=== PATIENT | female | born 1995 | race Caucasian/White ===

== ENCOUNTER → 2024-01-04 11:30 | Oncology outpatient (ONC) | payer OTHER, MEDICAID, SELFPAY ==
[2023-12-07] MEDS: IRON SUCROSE 200 MG in SODIUM CHLORIDE 0.9% 100 ML 220 MG IV (11:55)
[2023-12-07] MEDS: SODIUM CHLORIDE 0.9% 1,000 ML 1000 ML IV (12:00)
[2023-12-21 11:39] VITALS: BP 131/75; PULSE 95; RESP 18; TEMP 36.6; O2SAT 98
[2023-12-21] MEDS: IRON SUCROSE 300 MG in SODIUM CHLORIDE 0.9% 250 ML 176.667 MG IV (11:49)
[2023-12-28 11:50] VITALS: BP 123/69; PULSE 95; RESP 18; TEMP 36.9; O2SAT 95
[2023-12-28] MEDS: IRON SUCROSE 300 MG in SODIUM CHLORIDE 0.9% 250 ML 176.667 MG IV (12:05)
[2023-12-28 12:43] LABS: Hematocrit 27.5 % (36-46); Hemoglobin 9.4 g/dL (12.0-16.0); Mean Corpuscular HGB Conc 34.3 % (30-36); Mean Corpuscular Hemoglobin 35.8 PG (26-34); Mean Corpuscular Volume 104.3 fL (80-100); Platelet Count 111 X10^3/uL (150-400); Red Blood Cell Count 2.63 X10^6/uL (4.0-5.2); Red Cell Distribution Width 14.8 % (11.6-14.8); White Blood Cell Count 7.7 X10^3/uL (4.5-11.0)
[2024-01-04 11:45] VITALS: BP 118/67; PULSE 88; RESP 18; TEMP 36.9; O2SAT 98
[2024-01-04] MEDS: IRON SUCROSE 300 MG in SODIUM CHLORIDE 0.9% 250 ML 176.667 MG IV (12:18)
== END ==
PROVIDERS: Referring Provider Nurse Practitioner Obstetrics & Gynecology; Visit Provider Nurse Practitioner Obstetrics & Gynecology
DX: O99.013 Anemia complicating pregnancy, third trimester (principal); D50.9 Iron deficiency anemia, unspecified; Z3A.37 37 weeks gestation of pregnancy
CPT/HCPCS: 36415; 85027; 86900; 86901; 96361; 96365; 96366; J1756

== ENCOUNTER 2024-01-08 13:43 | Observation (INO) | payer OTHER, MEDICAID, SELFPAY ==
--- NOTE | 2024-01-08 13:49 | PM.OBTRLD ---
Visit Information Visit Information Date of evaluation: 01/08/24 Primary OB Provider: Serina Lewis On-call OB Provider: Serina Lewis Reason for Evaluation: Yes rule out labor Comments/Additional reasons for admission: 28YO @ 38wks 1 day by LMP concordant with 9wk US presents for evaluation of labor. Strong contractions began at 11am and have persisted. Currently breasting through contractions every 3-4 minutes. +FM. No vaginal bleeding or leaking of fluid. care with CNMs complicated by anemia for which she has received IV Fe and idiopathic thrombocytopenia Vital Signs Vital Signs: BP 133/83, HR 80, T 97.7F Temporal PFSH Medical History Depression Anxiety Breast mass, right Surgical History History of tonsillectomy Social History marital status: unmarried,living together household members: significant other lives independently: Yes caregiver/support person: No housing: apartment education level: college occupational status: employed current occupational exposures/hazards: No Smoking Status: Former smoker alcohol intake: former substance use type: does not use Review of Systems Review of Systems ROS: Yes All systems reviewed with the patient and are negative except as otherwise documented Exam Vital Signs (past 8 hours): see above Presentation: vertex Evaluation Evaluation Baseline heart rate: 125 Variability: Moderate (11-25) monitor accelerations: Present Monitor Decelerations: Absent Contraction Frequency (minutes): 4 Uterine Contraction Intensity: Moderate Category of Tracing: Reactive Cervical dilation (cm): 2 Cervical effacement (%): 75 station: -3 Diagnosis, Plan/Disposition Final Diagnosis (1) False labor after 37 completed weeks of gestation: Status: Acute Plan/Disposition Plan: Offered walk and return and Dewey declined, preferring to go back home and wait for labor to intensify. Routine labor precautions reviewed. Will await her call. OB Disposition: home
== END 2024-01-08 14:15 | disposition home or self-care (01) ==
PROVIDERS: Admitting Provider Nurse Practitioner Obstetrics & Gynecology; Referring Provider Nurse Practitioner Obstetrics & Gynecology; Visit Provider Nurse Practitioner Obstetrics & Gynecology
DX: O47.1 False labor at or after 37 completed weeks of gestation (principal); Z3A.38 38 weeks gestation of pregnancy
CPT/HCPCS: 59025; G0378; G0379

== ENCOUNTER 2024-01-08 18:17 | Inpatient (IN) | payer OTHER, MEDICAID, SELFPAY ==
--- NOTE | 2024-01-08 18:39 | PM.OBHP.1 ---
OB HPI Date/Time Date of admission: 01/08/24 Date Patient Seen: 01/08/24 Time Patient Seen: 18:30 History of Present Condition Chief complaint: LABOR : 1 Para: 0 Estimated Date of Delivery: 01/21/24 Estimated Gestational Age (weeks): 38w1d Narrative: Clare Brooks is a 28 year old female, @ 38 weeks 1 day by sure LMP concordant with 5 week US presenting for evaluation of labor. Contractions started today @ 1100 and have been 3-4min apart, moderate intensity and was evaluated in triage @ 1300 with CE: 2/75/-3 and in early labor. She opted to return home. Continue to have ctx 2-3min apart now increased in intensity with majority of pain in her lower back. Having to breathe and concentrate through ctx. movement felt. Denies bleeding or leaking of fluids. Interested in a low-intervention vaginal . Supported by Yuniel DE LA CRUZ) at bedside. Has received care w/ CNMs since 9w. notable for: RH(D) Anemia treated with IV iron, idiopathic thrombocytopenia (111 on 12/28/23). Indications Other reason(s) for admission: Evaluation of labor History of Present care: good care, initiated at week # (9w1d), number of visits (10) and pounds weight gain (47) Dating criteria: LMP confirmed by 1st trimester US Ultrasounds: normal mid trimester US Medical complications: immunologic (immune thrombocytopenia) Preadmission Labs Blood type: B (-) negative -: Antibody screen: negative, Cystic fibrosis screen: negative, GBS status: negative, HBsAG: negative, HIV: negative and RPR/VDLR: negative -: Chlamydia screen: not detected and Gonorrhea screen: not detected -: Rubella: immune and Varicella: immune HCT: 27.5 HCAB: negative PAP: Normal Cell-free DNA: negative Urine: normal 1 hr GTT: 85 Narrative: MsAFP negative Prior (ies) History: none Evaluation Evaluation Baseline heart rate: 125 Variability: Moderate (11-25) monitor accelerations: Present Monitor Decelerations: Absent Contraction Frequency (minutes): 2 (-3) Uterine Contraction Intensity: Moderate Status: Category l Dilation (cm): 4 Effacement (%): 85 station: -3 Position of cervix: posterior Consistency: soft PFSH Medical History Depression Anxiety Breast mass, right Surgical History History of tonsillectomy Social History marital status: unmarried,living together household members: significant other lives independently: Yes caregiver/support person: No housing: apartment education level: college occupational status: employed current occupational exposures/hazards: No Smoking Status: Never smoker alcohol intake: former substance use type: does not use Meds Home Medications and Allergies Home Medications Medication Instructions Recorded Confirmed Type ferrous sulfate 325 mg (65 mg 325 mg PO DAILY 01/08/24 01/08/24 History iron) tablet sertraline 50 mg tablet 50 mg PO DAILY 01/08/24 01/08/24 History Allergies Allergy/AdvReac Type Severity Reaction Status Date / Time hydrocodone AdvReac Verified 12/07/23 11:56 Review of Systems Review of Systems ROS: Yes All systems reviewed with the patient and are negative except as otherwise documented OB Exam Vital signs Blood Pressure: 123/76 Pulse Rate: 99 Temperature: 97.3 F Resp Effort & Inspection: normal respiratory effort and able to speak in complete sentences Auscultation: clear to auscultation bilaterally Cardio Rate: regular rate Rhythm: regular rhythm Presentation: vertex Objective Labs 01/08/24 19:20 Assessment and Plan Assessment and Plan Assessment and Plan narrative: A: Term nullipara Active labor Rh negative Idiopathic thrombocytopenia of Anemia FHR Cat 1 P: Admit for active labor with routine labs/orders w/ ferritin. May switch to intermittent auscultation as desired. Labor support as needed. TENS unit applied to lower back. Check in 4hr or sooner, prn.
[2024-01-08 19:10] VITALS: BP 123/76; PULSE 99; TEMP 36.3
[2024-01-08 19:28] VITALS: BP 123/76
[2024-01-08 19:35] LABS: Add Manual Diff / Slide Review NO; Basophils Absolute Auto 100 /uL (0-100); Basophils Percent Auto 0.5 % (0-2); Eosinophils Absolute Auto 0 /uL (0-450); Eosinophils Percent Auto 0.2 % (2-4); Hematocrit 29.8 % (36-46); Hemoglobin 10.4 g/dL (12.0-16.0); Lymphocytes Absolute Auto 2100 /uL (1100-4500); Lymphocytes Percent Auto 19.8 % (25-40); Mean Corpuscular Hemoglobin 36.5 PG (26-34); Mean Corpuscular Volume 104.4 fL (80-100); Monocytes Absolute Auto 1000 /uL (0-900); Monocytes Percent Auto 9.2 % (3-14); Neutrophils Absolute Auto 7600 /uL (1500-7000); Neutrophils Percent Auto 70.3 % (50-75); Platelet Count 126 X10^3/uL (150-400); Red Blood Cell Count 2.85 X10^6/uL (4.0-5.2); Red Cell Distribution Width 15.1 % (11.6-14.8); White Blood Cell Count 10.9 X10^3/uL (4.5-11.0)
[2024-01-08 20:24] LABS: Ferritin 365 ng/mL (6-137)
--- NOTE | 2024-01-08 22:05 | PM.OBPNLAB ---
Date/Time Date Patient Seen: 01/08/24 Time Patient Seen: 22:00 Pain Control Comments: Labored well in the tub for several hours. Currently using nitrous oxide with minimal/moderate pain relief. Requesting stronger pain management and would like to try IV pain medications. Thinks her water broke at 2155. Dewey reported previously that she has had a previous allergic reaction to hydrocodone (pruritus) but denies hives, facial/neck swelling or SOB and has used percocet and oxycodone without any reaction. Pelvic Exam Dilation (cm): 5 Effacement (%): 90 station: -1 Amniotic membrane status: Bulging Comments: scant fluid noted on her underwear and unable to assess color Contractions Monitor mode: None Contraction frequency (min): 2 (-3) Contraction pattern: Regular Contraction intensity: Moderate Status Heart Rate Baseline: 130 Comments: Reassuring by intermittent auscultation. Assessment and Plan Assessment: active labor Comments: A: Term nullip Active labor SROM <1hr Reassuring FHR w/intermittent auscultation P: Discontinue nitrous oxide. Counseled on options for pain management: IV Fentanyl and epidural. Discussed possible risk of receiving fentanyl given hx of mild allergic reaction to hydrocodone and educated on resources for possible reaction (narcan and Benadryl). Switch to continuous monitoring during IV fentanyl use. Reassess in 4 hours or sooner, PRN.
[2024-01-08] MEDS: fentaNYL 100 MCG/2 ML INJ IV ×3 (22:11→23:25)
[2024-01-08] MEDS: ONDANSETRON 4 MG/2 ML INJ IV (23:52)
[2024-01-09] MEDS: OXYTOCIN 10 UNIT/ML VIAL IM (05:20)
--- NOTE | 2024-01-09 05:36 | PM.OBPRVD ---
Labor & Delivery Delivery date: 01/09/24 Intrapartal Events: None Cervical ripening method: none Induction method: none Delivery monitor: external FHT Route of delivery: L&D Laceration Description: None Quantitative Blood Loss: 150 Anesthesia Type: None Narrative: Clare Brooks is a 28yo, now P1 @ 38w1 based on LMP and 9w US presented for evaluation of labor. She was found to be in active labor with contractions every 2-3 minutes and moderate intensity. Cervix was found to be 4/75/-2 and vertex with intact membranes. Continuous monitoring was Cat 1 and switched to intermittent auscultation. Normal labor course. Anesthesia type: nitrous oxide and IV fentanyl in early active labor and nitrous oxide during late active and pushing. Continuous labor support provided by CNM and SNM from 2330 onward. Progressed to feeling significant rectal pressure and upon CE was found to be 9/100/-1 with bulging bag @ 0134. Involuntary urge to push @ 0233 and presumed complete at 0250. AROM of externally bulging forebag @ 0403, fluid noted to be lightly meconium stained. Placed on continuous monitoring for decrease noted in FHR. FHR cat 2 throughout pushing with decelerations to 70's with return to baseline. on hands and knees of baby girl on 01/09/2024 @ 0513. No nuchal cord. The shoulders delivered without additional maneuvers. passed to client though legs. Dewey and baby assisted to bed. Active management initiated with pitocin IM. cord clamped/cut by FOB after 2 minutes. Placenta delivered kassi @ 0541 with gentle cord traction and maternal pushing. Vaginal and perineum inspected and intact. QBL 150mL. Both mother and baby stable and skin to skin as I left the room. [place] Baby 1: gender: Female Presentation: vertex Position: Left Occiput Anterior Placenta delivery description: Spontaneous and Expressed Cord Vessel Description: 3 Vessels score (1 min): 8 score (5 min): 9 weight: 3.188 kg Plan for aftercare: Routine care
[2024-01-09] MEDS: ACETAMINOPHEN 325 MG TABLET 650 MG PO ×3 (06:14→18:31)
[2024-01-09] MEDS: IBUPROFEN 600 MG TABLET PO ×3 (06:14→18:31)
[2024-01-09] MEDS: OXYCODONE IR 5 MG TABLET PO ×3 (10:10→21:25)
[2024-01-09] MEDS: SERTRALINE 50 MG TABLET PO (10:10)
[2024-01-09] MEDS: FERROUS SULFATE 325 MG TABLET PO (10:11)
[2024-01-09] MEDS: ONDANSETRON 4 MG ODT SL ×2 (11:08→18:31)
[2024-01-09] MEDS: RHO(D) IMMUNE GLOBULIN 1,500 UNIT SYRINGE 1500 UNIT IM (16:19)
[2024-01-09] MEDS: LANOLIN OINT 7 GM 1 APPLIC TOP (17:07)
--- NOTE | 2024-01-09 18:34 | PM.OBDS.1 ---
Discharge Providers Provider Date of admission: 01/08/24 18:17 Discharge Date: 01/09/24 Primary care physician: Serina Lewis CNM Consults: 01/10/24 05:34 Consult to Director [employer] Routine Comment: Discharge provider: Serina Lewis CNM Summary Hospital Course Date Patient Seen: 01/09/24 Time Patient Seen: 17:00 Diagnoses: O80 Hospital Course: Day of delivery: 12 hours s/p NSVB with no lacerations. Voiding, ambulating and independently. Not feeling light headed or dizzy with ambulation. Tolerating a general diet. Minimal cramping pain well controlled with ibuprofen and Tylenol. Vaginal bleeding is scant without clots. Eager for discharge to home as soon as possible. Partner is present and supportive. Peripartum Data Infant Delivery Method: Natural Vaginal Laceration Description: None Episiotomy description: None 1: Gender: Female Disposition of : home Discharge Diagnosis (1) Encounter for full-term uncomplicated delivery: Status: Acute Problem Details: routine course (2) Anemia affecting : Status: Acute Problem Details: stable (3) Thrombocytopenia affecting , antepartum: Status: Acute Problem Details: stable Status at Discharge Cognitive/behavioral status at discharge: oriented and calm Functional status at discharge: independent ambulation Overall status at discharge: patient is progressing back to baseline Time Spent with Patient Time attestation: Total time spent providing and/or coordinating discharge services: Objective Labs 01/08/24 19:20 Labs: Laboratory Results - last 24 hr 01/08/24 19:20 WBC 10.9 RBC 2.85 L Hgb 10.4 L Hct 29.8 L MCV 104.4 H MCH 36.5 H MCHC 35.0 RDW 15.1 H Plt Count 126 L Neut % (Auto) 70.3 Lymph % (Auto) 19.8 L [place] % (Auto) 9.2 Eos % (Auto) 0.2 L Baso % (Auto) 0.5 Neut # (Auto) 7600 H Lymph # (Auto) 2100 [place] # (Auto) 1000 H Eos # (Auto) 0 Baso # (Auto) 100 Ferritin 365 H Blood Type B Negative Antibody Screen Positive Antibody Identification Anti-D Exam Vital Signs (past 8 hours): Bp 111/61, HR 77, RR 15, T 98.3F Temporal Resp Effort & Inspection: normal respiratory effort and able to speak in complete sentences Other: Fundus firm U, lochia scant Psych Speech and Movement: speech and movement normal Mood: congruent mood Affect: normal affect Attitude: cooperative Thought Process: normal Discharge Plan Discharge Plan Patient Disposition: Home Discharge orders & Medications Prescriptions: New ibuprofen 600 mg Tablet 600 mg PO Q6HR PRN (Reason: Pain, Mild (1-3)) 14 Days Qty: 60 0RF Continued ferrous sulfate 325 mg (65 mg iron) Tablet 325 mg PO DAILY sertraline 50 mg tablet 50 mg PO DAILY Follow up/Referrals: Serina Lewis CNM [Primary Care Provider] - (2week and 6 week follow-up appointments in your email) Diet/Activity/Treatments Diet: Diet as Tolerated and Regular Activity: bed rest x 2 weeks. pelvic rest x 6 weeks. Skin/Wound/Dressing Care Report to your healthcare provider any signs of infection, such as:: chills, fever, increased pain, unusual drainage and unusual redness Visit Report/Discharge Packet Stand Alone Forms: Discharge: Care, Patient Portal/API, Stroke Signs & Symptoms Discharge Data Primary Care Provider: Serina Lewis
[2024-01-10] MEDS: ACETAMINOPHEN 325 MG TABLET 650 MG PO (00:13)
[2024-01-10] MEDS: IBUPROFEN 600 MG TABLET PO (00:13)
== END 2024-01-10 00:45 | disposition home or self-care (01) | DRG 806 ==
PROVIDERS: Admitting Provider Nurse Practitioner Obstetrics & Gynecology; PCP Nurse Practitioner Obstetrics & Gynecology; Referring Provider Nurse Practitioner Obstetrics & Gynecology; Visit Provider Nurse Practitioner Obstetrics & Gynecology
DX: O76 Abnormality in fetal heart rate and rhythm complicating labor and delivery (principal); O47.1 False labor at or after 37 completed weeks of gestation; Z37.0 Single live birth; Z3A.38 38 weeks gestation of pregnancy
CPT/HCPCS: 36415; 59025; 59050; 82728; 85025; 86850; 86870; 86900; 86901; G0378; G0379; J2405; J2590; J2790; J3010